=== PATIENT | female | born 1955 | race African-American/Black ===

== ENCOUNTER → 2018-01-17 | Outpatient (CLI) | payer SELFPAY | END | disposition home or self-care (01) | LOC: KCIC MAMMO 08:52 | DX: Z12.31 Encounter for screening mammogram for malignant neoplasm of breast (principal) | CPT/HCPCS: 77067 ==

== ENCOUNTER → 2019-04-30 | Outpatient (CLI) | payer OTHER ==
--- NOTE | 2019-04-30 20:14 | KCIC ---
Bilateral digital screening mammograms: Reason for examination: Routine screening. Comparison is made to previous studies dated 01/17/2018 and 09/19/2016. Interpretation was made with the benefit of CAD. The skin and nipples show no abnormalities. No abnormal axillary lymph nodes are seen. Bilateral breast implants remain present. The breast parenchyma is extremely dense. (Breast density: Category D) There continues to be coarse popcorn calcification at the 12:00 B position of the right breast consistent with a degenerated fibroadenoma. There also appears to be a small nodule adjacent to the implant behind the nipple of the left breast seen on cc view that measures 7.2 mm in size. This is not definitely seen on previous exams but may represent a noncalcified fibroadenoma. This can be further evaluated with ultrasound. There are no other new dominant masses, suspicious calcifications or architectural distortion. A few benign calcifications are again seen. Impression: 7.2 mm nodule seen in the left breast on cc view posterior to the nipple adjacent to the breast implant. This may represent a fibroadenoma. Further evaluation with ultrasound may be of benefit. Your patient's mammogram demonstrates that she has dense breast tissue (breast density category C or D), which could hide abnormalities, and if she has other risk factors for breast cancer that have been identified, she might benefit from supplemental screening tests that may be suggested by you as her ordering physician. Dense breast tissue, in and of itself, is a relatively common condition. Therefore, this information is not provided to cause undue concern, but rather to raise your awareness and to promote discussion with your patient regarding the presence of other risk factors, in addition to dense breast tissue. Your patient's mammography results will be sent to her. BI-RADS Category 0: Incomplete. Needs additional imaging evaluation. "Our facility is accredited by the [employer] Mammography [employer]." This patient's information has been entered into a reminder system for the patient to be notified with the results of her examination and a target date for the next mammogram. Electronically signed by: Chiquita Avelar MD (04/30/2019 8:12 PM) [facility]
== END | disposition home or self-care (01) ==
LOC: KCIC MAMMO 15:01
PROVIDERS: ATTEND Obstetrics & Gynecology
DX: Z12.31 Encounter for screening mammogram for malignant neoplasm of breast (principal); N63.20 Unspecified lump in the left breast, unspecified quadrant; N64.89 Other specified disorders of breast
CPT/HCPCS: 77067

== ENCOUNTER → 2019-05-19 | Outpatient (CLI) | payer OTHER ==
--- NOTE | 2019-05-19 10:08 | KCIC ---
Left breast ultrasound: Reason for examination: Nodular density on screening mammogram. Comparison is made to mammographic exam dated 04/30/2019. Ultrasound examination of the left breast was performed in the area of mammographic concern and at the left axilla. Breast implant is present and appears to be intact. In the 4:00 retroareolar position and appearing to correspond with the area of mammographic concern, there is a hypoechoic 8.5 mm circumscribed nodule in parallel orientation which would be consistent with a probable fibroadenoma. No other cystic or solid nodules are seen. No grossly abnormal appearing lymph nodes are seen in the axilla. IMPRESSION: 8.5 mm hypoechoic circumscribed nodule probably representing a fibroadenoma in the 4:00 retroareolar position. Recommend close follow-up with reevaluation with left breast ultrasound in 3 months. BI-RADS Category 3: Probably Benign. "Our facility is accredited by the [employer]ammography [employer]." This patient's information has been entered into a reminder system for the patient to be notified with the results of her examination and a target date for the next mammogram. Electronically signed by: Chiquita Avelar MD (05/19/2019 10:06 AM) [facility]
== END | disposition home or self-care (01) ==
LOC: KCIC US 09:09
PROVIDERS: ATTEND Obstetrics & Gynecology
DX: N63.23 Unspecified lump in the left breast, lower outer quadrant (principal); Z98.82 Breast implant status
CPT/HCPCS: 76641

== ENCOUNTER → 2019-08-07 | Outpatient (CLI) | payer OTHER ==
--- NOTE | 2019-08-07 12:25 | KCIC ---
Left breast ultrasound: Reason for examination: Follow-up nodule. Comparison is made to previous examination dated 05/19/2019. Ultrasound examination of the left breast and axilla was performed. In the 4:00 retroareolar position, there continues to be a 12.6 mm nodule present which lies in parallel orientation and shows no vascular flow. The appearance is consistent with a fibroadenoma and retrospectively does not appear to have changed when compared to the size on the antiradial view. No new cystic or solid nodules are seen. No changes seen in the left axillary lymph nodes. IMPRESSION: Continued presence of a circumscribed also consistent with a probable fibroadenoma in the retroareolar 4:00 position. Recommend continued follow-up with reevaluation with ultrasound in 3 months. BI-RADS Category 3: Probably Benign. "Our facility is accredited by the [employer] Mammography [employer]." This patient's information has been entered into a reminder system for the patient to be notified with the results of her examination and a target date for the next mammogram. Electronically signed by: Chiquita Avelar MD (08/07/2019 12:23 PM) [facility]
== END | disposition home or self-care (01) ==
LOC: KCIC US 08:11
PROVIDERS: ATTEND Obstetrics & Gynecology
DX: N63.23 Unspecified lump in the left breast, lower outer quadrant (principal)
CPT/HCPCS: 76641

== ENCOUNTER → 2019-10-30 | Outpatient (CLI) | payer OTHER ==
--- NOTE | 2019-10-30 14:14 | KCIC ---
Left breast ultrasound: Reason for examination: Follow-up nodule. Comparison is made to previous studies dated 08/07/2019 05/19/2019. Ultrasound examination of the left breast and axilla was performed. In the retroareolar 4:00 position, there continues to be a hypoechoic lesion in parallel orientation measuring 1.2 cm in greatest dimension. This is not changed. No other cystic or solid lesions are seen. No abnormal appearing lymph nodes are seen in the axilla. IMPRESSION: No significant change evident in the nodule in the retroareolar 4:00 position. This probably represents a fibroadenoma but recommend continued follow-up ultrasound in 6 months which can be performed at the time of bilateral mammograms. BI-RADS Category 3: Probably Benign. "Our facility is accredited by the [employer] Mammography [employer]." This patient's information has been entered into a reminder system for the patient to be notified with the results of her examination and a target date for the next mammogram. Electronically signed by: Chiquita Avelar MD (10/30/2019 2:11 PM) [id number]
== END | disposition home or self-care (01) ==
LOC: KCIC US 12:45
PROVIDERS: ATTEND Obstetrics & Gynecology
DX: N64.89 Other specified disorders of breast (principal)
CPT/HCPCS: 76641